=== PATIENT | male | born 2000 | race Caucasian/White ===

== ENCOUNTER 2018-10-24 09:19 | Emergency (ER) | payer OTHER ==
[~2018-10-24] VITALS: Ht 172.7 cm; Wt 72.0 kg
[2018-10-24] MEDS ORDERED: NAPR-885 PO (09:25)
[2018-10-24] MEDS ORDERED: APAP325T4 PO (09:25)
[2018-10-24] MEDS ORDERED: CYCL10TA PO (09:25)
[2018-10-24 10:42] VITALS: BP 122/81
[2018-10-24] MEDS ORDERED: MOBI4TAB PO (10:45)
--- NOTE | 2018-10-24 10:50 | REP ---
RIGHT KNEE, FIVE VIEWS: There is no evidence of an acute fracture, dislocation or intrinsic bone disease. IMPRESSION: No fracture or dislocation. Electronically Signed by Almas Cabrera MD 10/25/2018 08:08 A
== END 2018-10-24 10:57 | disposition home or self-care (01) ==
LOC: M ED 09:19
DX: S89.91XA Unspecified injury of right lower leg, initial encounter (principal); X58.XXXA Exposure to other specified factors, initial encounter; Y92.89 Other specified places as the place of occurrence of the external cause

== ENCOUNTER 2020-09-21 19:10 | Emergency (ER) | payer OTHER ==
[~2020-09-21] VITALS: Ht 170.2 cm; Wt 78.7 kg
[~2020-09-21 19:10] MED LIST: APAP325T4 PO; CYCL-707 PO; MOBI4TAB PO; NAPR-885 PO
[2020-09-22 06:07] VITALS: BP 118/72
== END 2020-09-22 06:05 | disposition home or self-care (01) ==
LOC: M ED 19:10
DX: J06.9 Acute upper respiratory infection, unspecified (principal); B34.8 Other viral infections of unspecified site; Z20.822 Contact with and (suspected) exposure to COVID-19
CPT/HCPCS: 99284; U0003